=== PATIENT | female | born 1950 | race Caucasian/White ===

== ENCOUNTER 2019-03-04 09:09 | Outpatient (CLI) | payer OTHER ==
[2019-03-04] MEDS ORDERED: VIT500TA3 PO (09:36)
[2019-03-04 10:23] LABS: BASOPHILS % (AUTO) 0 % (0-1); EOSINOPHILS # (AUTO) 0.22 x10^3/uL (0-0.4); EOSINOPHILS % (AUTO) 3 % (1-7); LYMPHOCYTES # (AUTO) 1.23 x10^3/uL (1-3.4); LYMPHOCYTES % (AUTO) 17 % (22-44); MD NO; MEAN CORPUSCULAR HEMOGLOBIN 35.2 pg (27.0-34.8); MEAN CORPUSCULAR HGB CONC 33.8 g/dL (32.4-35.8); MONOCYTES # (AUTO) 0.49 x10^3/uL (0.2-0.8); MONOCYTES % (AUTO) 7 % (2-9); NEUTROPHILS # (AUTO) 5.52 x10^3/uL (1.8-6.8); NEUTROPHILS % (AUTO) 74 % (42-75); PLATELET COUNT 268 x10^3/uL (130-400); RED BLOOD COUNT 4.35 x10^6/uL (3.82-5.3); RED CELL DISTRIBUTION WIDTH 13.8 % (9.6-15.2)
[2019-03-04 10:35] LABS: CALCIUM 9.2 mg/dL (8.5-10.1); CREATININE 0.79 mg/dL (0.55-1.02)
[2019-03-04 10:48] LABS: ANION GAP 6 mmol/L (5-15); CHLORIDE 110 mmol/L (98-107)
== END 2019-03-04 23:59 | disposition home or self-care (01) ==
LOC: STAR 09:09 → MERGE 09:30 → STAR 23:59
PROVIDERS: ATTEND Orthopaedic Surgery
DX: Z01.818 Encounter for other preprocedural examination (principal); M17.11 Unilateral primary osteoarthritis, right knee; F17.200 Nicotine dependence, unspecified, uncomplicated
CPT/HCPCS: 36415; 80048; 85025; 87081; 93005

== ENCOUNTER 2019-03-18 05:28 | Observation (INO) | payer OTHER ==
[~2019-03-18] VITALS: Ht 165.1 cm; Wt 82.0 kg
[~2019-03-18 05:28] MED LIST: VIT500TA3 PO
[2019-03-18] MEDS ORDERED: LACTATED RINGERS 1,000 ML IV SCH (06:04)
[2019-03-18] MEDS ORDERED: ACET-1600 PO (06:09)
[2019-03-18 06:10] VITALS: BP 130/89
[2019-03-18] MEDS ORDERED: KETOROLAC 60 MG/2 ML ONE (06:28)
[2019-03-18] MEDS ORDERED: ROPIvacaine/PF 0.5%, 30 ML ONE (06:28)
[2019-03-18] MEDS ORDERED: ROPIvacaine/PF 0.5%, 20 ML ONE (06:28)
[2019-03-18] MEDS ORDERED: TRANEXAMIC ACID 100 MG/ML, 10ML ONE ×2 (06:28)
[2019-03-18] MEDS ORDERED: SODIUM CHLORIDE 0.9% 50 ML ONE (06:29)
[2019-03-18] MEDS ORDERED: MIDAZOLAM 1 MG/ML, 2ML ONE ×2 (06:29→08:12)
[2019-03-18] MEDS ORDERED: VANCOMYCIN 1,000 MG ONE (06:29)
[2019-03-18] MEDS ORDERED: EPINEPHRINE 1 MG/ML, 1ML ONE (06:29)
[2019-03-18] MEDS ORDERED: FENTANYL PF 250 MCG/5ML ONE (06:29)
[2019-03-18] MEDS ORDERED: ACETAMINOPHEN 500 MG TABLET PO ONE (06:30)
[2019-03-18] MEDS ORDERED: PREGABALIN 150 MG CAPSULE PO ONE (06:30)
[2019-03-18] MEDS ORDERED: LIDOCAINE-MPF 1%, 2ML INFIL ONE (06:30)
[2019-03-18] MEDS ORDERED: BISACODYL 10 MG SUPP PR PRN (07:00)
[2019-03-18] MEDS ORDERED: MAGNESIUM HYDROXIDE 8%, 30ML UDC PO PRN (07:00)
[2019-03-18] MEDS ORDERED: OXYcodone IR 5MG TABLET PO PRN (07:00)
[2019-03-18] MEDS ORDERED: DIPHENHYDRAMINE 25 MG CAPSULE PO PRN (07:00)
[2019-03-18] MEDS ORDERED: ONDANSETRON 2MG/ML, 2ML IV PRN (07:00)
[2019-03-18] MEDS ORDERED: HYDROcodone/APAP 5/325 TABLET PO PRN (07:00)
[2019-03-18] MEDS ORDERED: SENNA/DOCUSATE TABLET PO PRN (07:00)
[2019-03-18] MEDS ORDERED: ONDANSETRON 4 MG TABLET PO PRN (07:00)
[2019-03-18] MEDS ORDERED: SCOPOLAMINE PATCH, 1.5MG PATCH.TD72 TD ONE (07:00)
[2019-03-18] MEDS ORDERED: HYDROmorphone 1 MG/ML, 1ML INJ IV PRN (07:00)
[2019-03-18] MEDS ORDERED: LIDOCAINE-MPF 2% ,5ML ONE (07:27)
[2019-03-18] MEDS ORDERED: BUPIVACAINE/PF 0.25% ONE (07:27)
[2019-03-18] MEDS ORDERED: METOPROLOL 1 MG/ML, 5ML IV PRN (07:30)
[2019-03-18] MEDS ORDERED: ALBUTEROL/IPRATROPIUM 2.5MG/0.5MG, 3 ML NPPB PRN (07:30)
[2019-03-18] MEDS ORDERED: MEPERIDINE/PF 25MG/ML,1ML IVPush PRN (07:30)
[2019-03-18] MEDS ORDERED: MIDAZOLAM 1 MG/ML, 2ML IV PRN (07:30)
[2019-03-18] MEDS ORDERED: PROMETHAZINE 25 MG/ML, 1ML IV PRN (07:30)
[2019-03-18] MEDS ORDERED: hydrALAzine 20 MG/ML, 1ML IV PRN (07:30)
[2019-03-18] MEDS ORDERED: PROPOFOL 10 MG/ML, 20ML ONE (07:38)
[2019-03-18] MEDS ORDERED: CEFAZOLIN 1,000 MG ONE (07:38)
[2019-03-18] MEDS ORDERED: ONDANSETRON 2MG/ML, 2ML ONE (07:38)
[2019-03-18] MEDS ORDERED: DEXAMETHASONE 4 MG/ML, 1ML ONE (07:38)
[2019-03-18] MEDS ORDERED: FENTANYL PF 100 MCG/2ML ONE ×2 (07:59→08:08)
[2019-03-18] MEDS: FENTANYL PF 100 MCG/2ML IV PRN ×2 (08:09→08:19)
[2019-03-18] MEDS ORDERED: OXYcodone 5 MG/5 ML ORAL.SOL UDC ONE ×2 (08:21→09:01)
[2019-03-18] MEDS ORDERED: MEPERIDINE/PF 25MG/ML,1ML ONE (08:21)
[2019-03-18] MEDS: OXYcodone 5 MG/5 ML ORAL.SOL UDC PO PRN ×2 (08:31→09:05)
[2019-03-18] MEDS ORDERED: HYDROmorphone 1 MG/ML, 1ML VIAL ONE (08:34)
[2019-03-18] MEDS: HYDROmorphone 2 MG/ML, 1ML IVPush PRN ×2 (08:37→08:56)
[2019-03-18] MEDS ORDERED: DIAZEPAM 5 MG/ML, 2ML ONE (08:44)
[2019-03-18] MEDS ORDERED: DIAZEPAM 5 MG/ML, 2ML IVPush PRN (09:00)
[2019-03-18 10:15] VITALS: BP 89/60
[2019-03-18 12:12] VITALS: BP 110/74
[2019-03-18] MEDS: DOCUSATE 100 MG CAPSULE PO SCH ×2 (13:21→22:11)
[2019-03-18] MEDS: NS + 20MEQ KCL 1,000 ML IV SCH (13:21)
[2019-03-18] MEDS: CEFAZOLIN PMX 2GM/50ML 50 ML IVPB SCH ×2 (15:01→23:10)
[2019-03-18] MEDS: ASPIRIN 81 MG TABLET EC PO SCH (17:52)
[2019-03-18] MEDS: ACETAMINOPHEN 650 MG/20.3 ML UDC PO PRN ×2 (17:52→22:11)
[2019-03-18 18:39] VITALS: BP 110/72
[2019-03-18] MEDS ORDERED: ZOLPIDEM 5MG TABLET PO PRN (21:00)
[2019-03-18 23:39] VITALS: BP 102/65
[2019-03-19] MEDS: NS + 20MEQ KCL 1,000 ML IV SCH (01:30)
[2019-03-19 03:10] VITALS: BP 107/70
[2019-03-19] MEDS: ASPIRIN 81 MG TABLET EC PO SCH (05:56)
[2019-03-19] MEDS: ACETAMINOPHEN 650 MG/20.3 ML UDC PO PRN (05:56)
[2019-03-19] MEDS ORDERED: DEXAMETHASONE 4 MG/ML, 1ML IVPush SCH (06:00)
[2019-03-19 06:50] VITALS: BP 101/65
[2019-03-19] MEDS: DOCUSATE 100 MG CAPSULE PO SCH (08:19)
[2019-03-19] MEDS ORDERED: OXYC5CAP2 PO (08:52)
[2019-03-19] MEDS ORDERED: TRAM50TA2 PO (08:56)
[2019-03-19] MEDS ORDERED: MELO7.5T31 PO (08:57)
== END 2019-03-19 11:05 | disposition home or self-care (01) ==
LOC: OUT 05:28 → MERGE 07:00 → 4NE 10:16 → OUT 20:23 → 4NE 20:23 → DCLOUNGE 03-19 10:54
PROVIDERS: ADMIT Orthopaedic Surgery; ATTEND Orthopaedic Surgery
DX: M17.11 Unilateral primary osteoarthritis, right knee (principal); F17.210 Nicotine dependence, cigarettes, uncomplicated; F10.10 Alcohol abuse, uncomplicated; Z68.27 Body mass index [BMI] 27.0-27.9, adult; Z79.899 Other long term (current) drug therapy
CPT/HCPCS: 27447; 36415; 85014; 85018; 96365; 96366; 96375; 97110; 97162; 97166; 97530; C1713; C1776; G0378; J0171; J0690; J1100; J1170; J1885; J2175; J2250; J2405; J2704; J2795; J3010; J3360; J3370; J3480; J3490; J7120

== ENCOUNTER → 2019-06-17 | Outpatient (CLI) | payer OTHER ==
[~2019-06-17] MED LIST changes: +ACET-1600 PO; +EMERGEN C PO; +IBUP-1623 PO; +MELO7.5T31 PO; +OXYC5CAP2 PO; +TRAM50TA2 PO
[2019-06-17 10:31] LABS: BASOPHILS # (AUTO) 0.02 x10^3/uL (0-0.1); BASOPHILS % (AUTO) 0 % (0-1); EOSINOPHILS # (AUTO) 0.12 x10^3/uL (0-0.4); EOSINOPHILS % (AUTO) 2 % (1-7); LYMPHOCYTES # (AUTO) 1.61 x10^3/uL (1-3.4); LYMPHOCYTES % (AUTO) 22 % (22-44); MD NO; MEAN CORPUSCULAR HEMOGLOBIN 34.2 pg (27.0-34.8); MEAN CORPUSCULAR HGB CONC 34.1 g/dL (32.4-35.8); MEAN CORPUSCULAR VOLUME 100.4 fL (80-100); MEAN PLATELET VOLUME 8.8 fL (7.4-10.4); MONOCYTES % (AUTO) 7 % (2-9); NEUTROPHILS # (AUTO) 5.25 x10^3/uL (1.8-6.8); NEUTROPHILS % (AUTO) 70 % (42-75); PLATELET COUNT 241 x10^3/uL (130-400); RED BLOOD COUNT 4.93 x10^6/uL (3.82-5.3); RED CELL DISTRIBUTION WIDTH 14.7 % (9.6-15.2)
[2019-06-17 10:42] LABS: INTERNATIONAL NORMALIZED RATIO 0.96 (0.93-1.1); PROTHROMBIN TIME 10.2 Seconds (9.6-11.5)
[2019-06-17 10:44] LABS: ANION GAP 6 mmol/L (5-15); CALCIUM 9.4 mg/dL (8.5-10.1); CHLORIDE 109 mmol/L (98-107); CREATININE 0.91 mg/dL (0.55-1.02)
== END | disposition home or self-care (01) ==
LOC: STAR 09:21
PROVIDERS: ATTEND Orthopaedic Surgery
DX: Z01.818 Encounter for other preprocedural examination (principal); M17.12 Unilateral primary osteoarthritis, left knee
CPT/HCPCS: 36415; 80048; 83036; 85025; 85610; 85730; 87081; 93005

== ENCOUNTER 2019-09-02 10:28 | Observation (INO) | payer OTHER ==
[~2019-09-02] VITALS: Ht 167.6 cm; Wt 88.3 kg
[2019-09-02] MEDS: DOCUSATE 100 MG CAPSULE PO SCH ×2 (09:00→20:19)
[~2019-09-02 10:28] MED LIST changes: +ACETAMINOPHEN 650 MG/20.3 ML UDC PO PRN; +BISACODYL 10 MG SUPP PR PRN; +DIPHENHYDRAMINE 50 MG CAPSULE PO PRN; +EPINEPHRINE 1 MG/ML, 1ML ONE; +HYDROcodone/APAP 5/325 TABLET PO PRN; +HYDROmorphone 1 MG/ML, 1ML INJ IV PRN; +KETOROLAC 60 MG/2 ML ONE; +MAGNESIUM HYDROXIDE 8%, 30ML UDC PO PRN; +ONDANSETRON 2MG/ML, 2ML IV PRN; +ONDANSETRON 4 MG TABLET PO PRN; +ROPIvacaine/PF 0.5%, 20 ML ONE; +ROPIvacaine/PF 0.5%, 30 ML ONE; +SENNA/DOCUSATE TABLET PO PRN; +SODIUM CHLORIDE 0.9% 50 ML ONE; +TRANEXAMIC ACID 100 MG/ML, 10ML ONE; +VANCOMYCIN 1,000 MG ONE; +ZOLPIDEM 5MG TABLET PO PRN
[2019-09-02] MEDS ORDERED: FENTANYL PF 250 MCG/5ML ONE ×2 (10:38→12:23)
[2019-09-02] MEDS ORDERED: ROPIvacaine/PF 0.2%, 20 ML ONE (10:40)
[2019-09-02] MEDS ORDERED: ROCURONIUM 10MG/ML,5ML ONE (10:43)
[2019-09-02] MEDS ORDERED: ONDANSETRON 2MG/ML, 2ML ONE (10:43)
[2019-09-02] MEDS ORDERED: GLYCOPYRROLATE 0.2MG/1ML, 5ML ONE (10:43)
[2019-09-02] MEDS ORDERED: DEXAMETHASONE 4 MG/ML, 1ML ONE (10:43)
[2019-09-02] MEDS ORDERED: PROPOFOL 10 MG/ML, 20ML ONE (10:43)
[2019-09-02] MEDS ORDERED: NEOSTIGMINE 1 MG/ML, 10ML ONE (10:43)
[2019-09-02] MEDS ORDERED: CEFAZOLIN 1,000 MG ONE (10:43)
[2019-09-02] MEDS ORDERED: LACTATED RINGERS 1,000 ML IV SCH (11:14)
[2019-09-02] MEDS ORDERED: ACETAMINOPHEN 500 MG TABLET ONE (11:17)
[2019-09-02] MEDS ORDERED: GABAPENTIN 300 MG CAPSULE ONE (11:17)
[2019-09-02] MEDS ORDERED: CHLORHEXIDINE 15 ML UDC ONE (11:18)
[2019-09-02] MEDS ORDERED: ACETAMINOPHEN 500 MG TABLET PO ONE (11:30)
[2019-09-02] MEDS ORDERED: CHLORHEXIDINE 15 ML UDC MM ONE (11:30)
[2019-09-02] MEDS ORDERED: GABAPENTIN 300 MG CAPSULE PO ONE (11:30)
[2019-09-02] MEDS ORDERED: OXYcodone 5 MG/5 ML ORAL.SOL UDC PO PRN (12:00)
[2019-09-02] MEDS ORDERED: LABETALOL 5MG/ML, 20ML IV PRN (12:00)
[2019-09-02] MEDS ORDERED: HALOPERIDOL 5 MG/ML IV PRN (12:00)
[2019-09-02] MEDS ORDERED: MEPERIDINE/PF 25MG/0.5ML IVPush PRN (12:00)
[2019-09-02] MEDS ORDERED: PROMETHAZINE 25 MG/ML, 1ML IVPush PRN (12:00)
[2019-09-02] MEDS ORDERED: hydrALAzine 20 MG/ML, 1ML IV PRN (12:00)
[2019-09-02] MEDS ORDERED: morphine SULFATE 10 MG/ML, 1ML IVPush PRN (12:00)
[2019-09-02] MEDS ORDERED: SUGAMMADEX 200 MG/2 ML IVPush ONE (12:59)
[2019-09-02] MEDS ORDERED: FENTANYL PF 100 MCG/2ML ONE (13:20)
[2019-09-02] MEDS ORDERED: HYDROmorphone 1 MG/ML, 1ML INJ ONE (13:20)
[2019-09-02] MEDS ORDERED: OXYcodone 5 MG/5 ML ORAL.SOL UDC ONE (13:20)
[2019-09-02] MEDS: HYDROmorphone 1 MG/ML, 1ML INJ IVPush PRN ×2 (13:30→13:41)
[2019-09-02] MEDS: FENTANYL PF 100 MCG/2ML IV PRN ×2 (13:32→13:41)
[2019-09-02] MEDS ORDERED: HALOPERIDOL 5 MG/ML ONE (13:54)
[2019-09-02] MEDS: NS + 20MEQ KCL 1,000 ML IV SCH (17:15)
[2019-09-02] MEDS: ASPIRIN 81 MG TABLET EC PO SCH (17:15)
[2019-09-02] MEDS ORDERED: CEFAZOLIN PMX 2GM/50ML 50 ML IVPB SCH (18:00)
[2019-09-02 18:56] VITALS: BP 103/73
[2019-09-02] MEDS: CEFAZOLIN PMX 2GM/50ML 50 ML IVPB SCH (20:19)
[2019-09-02] MEDS: OXYcodone IR 5MG TABLET PO PRN (21:41)
[2019-09-02 23:23] VITALS: BP 103/66
[2019-09-03] MEDS: OXYcodone IR 5MG TABLET PO PRN ×2 (01:32→06:32)
[2019-09-03 04:00] VITALS: BP 114/70
[2019-09-03] MEDS: CEFAZOLIN PMX 2GM/50ML 50 ML IVPB SCH (04:18)
[2019-09-03] MEDS: ASPIRIN 81 MG TABLET EC PO SCH (05:29)
[2019-09-03] MEDS ORDERED: DEXAMETHASONE 4 MG/ML, 1ML IVPush SCH (06:00)
[2019-09-03] MEDS: NS + 20MEQ KCL 1,000 ML IV SCH (06:24)
[2019-09-03 07:05] VITALS: BP 101/62
[2019-09-03] MEDS ORDERED: ACETAMINOPHEN 325 MG TABLET PO PRN (08:00)
[2019-09-03] MEDS: DOCUSATE 100 MG CAPSULE PO SCH (08:29)
== END 2019-09-03 09:43 | disposition home or self-care (01) ==
LOC: OUT 10:28 → 4NE 14:28 → OUT 23:00
PROVIDERS: ADMIT Orthopaedic Surgery; ATTEND Orthopaedic Surgery
DX: Z03.818 Encounter for observation for suspected exposure to other biological agents ruled out (principal); M17.12 Unilateral primary osteoarthritis, left knee; F17.200 Nicotine dependence, unspecified, uncomplicated; F10.10 Alcohol abuse, uncomplicated; Z68.27 Body mass index [BMI] 27.0-27.9, adult
CPT/HCPCS: 27447; 36415; 85014; 85018; 96365; 96366; 96375; 97110; 97161; 97165; C1713; C1776; G0378; J0171; J0690; J1100; J1170; J1630; J1885; J2405; J2704; J2710; J2795; J3010; J3480; J7120; U0001; J3370